=== PATIENT | male | born 1995 | race Caucasian/White ===

== ENCOUNTER 2021-03-31 06:17 | Emergency (ER) | payer SELFPAY ==
[~2021-03-31] VITALS: Ht 193 cm; Wt 97.7 kg
[2021-03-31 07:41] LABS: MICROSCOPIC INDICATED
--- NOTE | 2021-03-31 07:45 | NUR ---
SEEN BY PA. UA SENT, PT IN LOBBY, CXR COMPLETE
--- NOTE | 2021-03-31 08:42 | NUR ---
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
--- NOTE | 2021-03-31 08:44 | NUR ---
FEVER X10 DAYS NEGATIVE COVID TEST YESTERDAY. PT TO ROOM WITH WITH STEADY GAIT. POSTIONED TO COMFORT. NADN. VSS. SEAN CERVANTES TO BEDSIDE TO DISCUSS RESULTS.
[2021-03-31 08:48] VITALS: BP 100/73
[2021-03-31] MEDS ORDERED: ACETAMINOPHEN 500 MG TABLET PO ONE (09:00)
--- NOTE | 2021-03-31 09:28 | NUR ---
Patient given discharge instructions and they have confirmed that they understand the instructions. Patient ambulatory with steady gait.
== END 2021-03-31 09:29 | disposition home or self-care (01) ==
LOC: ED 09:20
DX: B34.9 Viral infection, unspecified (principal); R07.89 Other chest pain
CPT/HCPCS: 71045; 81001; 99284